=== PATIENT | female | born 1990 | race Caucasian/White ===

== ENCOUNTER 2020-01-24 10:52 | Emergency (ER) | payer OTHER ==
[~2020-01-24] VITALS: Ht 154.9 cm; Wt 67.0 kg
[2020-01-24] MEDS ORDERED: LISI10TA4 PO (10:58)
[2020-01-24 11:49] LABS: BASO % 0.3 % (0.0-1.0); EOS % 0.6 % (0.0-3.0); HEMATOCRIT 42.3 % (36.0-47.0); HEMOGLOBIN 13.2 g/dl (12.0-15.5); LYMPH # 1.8 10^3/uL (1.5-5.0); LYMPH % 26.9 % (24.0-44.0); MEAN CORPUSCULAR HEMOGLOBIN 26.5 pg (27.0-33.0); MEAN CORPUSCULAR HGB CONC 31.2 g/dl (32.0-36.5); MEAN CORPUSCULAR VOLUME 84.8 fl (80.0-96.0); MONO # 0.3 10^3/uL (0.0-0.8); MONO % 4.9 % (0.0-5.0); NEUTROPHILS # 4.5 10^3/uL (1.5-8.5); PLATELET COUNT, AUTOMATED 434 10^3/uL (150-450); RED BLOOD COUNT 4.99 10^6/uL (4.00-5.40); WHITE BLOOD COUNT 6.7 10^3/uL (4.0-10.0)
[2020-01-24 12:05] LABS: ALBUMIN 3.8 GM/DL (3.2-5.2); BILIRUBIN,DIRECT 0.1 MG/DL (0.0-0.2); BILIRUBIN,TOTAL 0.3 MG/DL (0.2-1.0); TOTAL PROTEIN 8.6 GM/DL (6.4-8.2)
[2020-01-24 12:48] VITALS: BP 129/79
== END 2020-01-24 12:49 | disposition home or self-care (01) ==
LOC: M ED 10:52
DX: R10.9 Unspecified abdominal pain (principal); I10 Essential (primary) hypertension

== ENCOUNTER → 2021-01-11 | Outpatient (CLI) | payer OTHER ==
[~2021-01-11] MED LIST: LISI10TA22 PO
--- NOTE | 2021-01-11 17:08 | REP ---
INDICATION: PREG 25+ WKS GROWTH PRECLAPSIA. COMPARISON: By report a full anatomical screen was performed at an outside institution. All interested parties should review that report. The report was generated and November 30, 2020 and I do not have the prior exam to review. TECHNIQUE: Transabdominal FINDINGS: Multiple ultrasonographic images of the gravid uterus shows a single living intrauterine gestation in the cephalic presentation. Doppler interrogation of the heart shows a heart rate of 139 beats per minute. The placenta is anterior not low lying. The cervix measures 4.7 cm length and is closed. The subjective amniotic fluid volume is increased. The calculated amniotic fluid index is 26.9 within expected range 9.7 to 22.3. BPD: 7.2 cm 28 weeks 6 days HC: 25.2 cm 27 weeks 3 days AC: 23.9 cm 28 weeks 1 day FL: 5 cm 26 weeks 6 days The estimated weight is 1115 g which is at the 71st percentile for a 26 week 1 day gestational age. That is based on the patient's LMP rather than today's biometry. Doppler interrogation of the umbilical artery shows an A\B ratio of 2.61. This is within the normal range. Evaluation of the kidneys show bilateral pelviectasis 4.5 mm on the right and 6.7 mm on the left. IMPRESSION: Single living intrauterine gestation as described above an estimated gestational age of 28 weeks 0 days via composite criteria and an estimated date of delivery of 04/05/2021 by today's exam. There is bilateral pelviectasis as described above. This needs clinical correlation and close follow-up. <Electronically signed by Andrea Cohen > 01/11/21 [id number]
== END ==
LOC: M RAD 15:55
PROVIDERS: ATTEND Obstetrics & Gynecology
DX: O14.93 Unspecified pre-eclampsia, third trimester (principal); Z3A.28 28 weeks gestation of pregnancy

== ENCOUNTER → 2021-02-21 | Outpatient (CLI) | payer OTHER ==
[2021-02-21 11:28] LABS: CREATININE,RANDOM URINE < 13.0 MG/DL; TOTAL PROTEIN,RANDOM URINE < 5.0 MG/DL (0.0-12.0)
== END ==
LOC: M LAB 10:25
PROVIDERS: ATTEND Obstetrics & Gynecology
DX: Z36.89 Encounter for other specified antenatal screening (principal)

== ENCOUNTER 2021-03-10 12:13 | Inpatient (IN) | payer OTHER ==
[~2021-03-10] VITALS: Ht 154.9 cm; Wt 94.5 kg
[2021-03-10] VITALS (19 sets, daily range): BP systolic 127–166; BP diastolic 74–117
[2021-03-10] MEDS ORDERED: LABE100T5 PO (12:55)
[2021-03-10] MEDS ORDERED: PRENTAB9 PO (12:55)
[2021-03-10] MEDS ORDERED: ASPI81CH33 PO (12:55)
[2021-03-10] MEDS ORDERED: PANT20TA6 PO (12:55)
[2021-03-10] MEDS ORDERED: HOME MED LIST COMPLETE! XX SCH (13:00)
[2021-03-10] MEDS ORDERED: LABETALOL 100MG/20ML VIAL IV ONE (13:15)
[2021-03-10 13:23] LABS: ALT/SGPT 19 U/L (12-78); BILIRUBIN,TOTAL 0.2 MG/DL (0.2-1.0); CREATININE FOR GFR 0.49 MG/DL (0.55-1.30); GLOMERULAR FILTRATION RATE > 60.0 (>60); LDH LACTATE DEHYDROGENASE 174 U/L (84-246); URIC ACID 2.7 MG/DL (2.6-6.0)
[2021-03-10] MEDS ORDERED: NIFEdipine 10 MG CAP PO STA (13:26)
[2021-03-10] MEDS ORDERED: LABETALOL 100MG/20ML VIAL IV SCH (13:30)
[2021-03-10] MEDS ORDERED: MAG Sulf (L&D) 4 GM/100 ML 4 GM in IV 1 EA IV ONE (13:30)
[2021-03-10 13:41] LABS: APPEARANCE, URINE CLEAR (CLEAR); BACTERIA, URINE AUTO NEGATIVE (NEGATIVE); BILIRUBIN, URINE AUTO NEGATIVE (NEGATIVE); BLOOD, URINE BLOOD NEGATIVE (NEGATIVE); COLOR, URINE COLORLESS (YELLOW); GLUCOSE, URINE (UA) AUTO NEGATIVE (NEGATIVE); KETONE, URINE AUTO NEGATIVE (NEGATIVE); LEUKOCYTE ESTERASE, URINE AUTO NEGATIVE (NEGATIVE); NITRITE, URINE AUTO NEGATIVE (NEGATIVE); PROTEIN, URINE AUTO NEGATIVE (NEGATIVE); RBC, URINE AUTO 0 /HPF (0-3); SPECIFIC GRAVITY URINE AUTO 1.003 (1.002-1.035); SQUAMOUS EPITHELIAL CELL UR AU 0 /HPF (0-6); UROBILINOGEN, URINE AUTO 0.2 mg/dL (0.0-2.0); WBC, URINE AUTO 0 /HPF (0-3)
--- NOTE | 2021-03-10 13:41 | IPNPDOC ---
Text Note Date of Service The patient was seen on 03/10/21. NOTE 31yo presents to labor and delivery from clinic for severe range blood pressures with history of 27wk for pre eclampsia and HELP. Denies headaches or vision changes. BP 172/100 161/102 157/100 RNST FHR 120, mod variability, +accel, -decel, no contractions noted. Lungs CTA RRR clonus +2 noted on exam 2+ bilateral edema Pre eclamptic labs and saline lock ordered Dr. Jacobo called and advised of patient status and history. Per Dr. Jacobo Pt orders for admission placed, Iv labetalol doubling protocol and magnesium sulfate ordered. Pt was advised of concern for need for delivery today, and that Dr. Jacobo will be coming to discuss plan of care with her. Questions asked and answered about expectations for an infant born at 34 wks compared to 27wk discussed. Per Dr. Jacobo's instructions an additional order for 10mg po nifedipine was placed while nursing staff attempted to start IV access. VS,Raobone, I+O VS, Raobone, I+O Laboratory Tests 03/10/21 12:49 Vital Signs Date Time Temp Pulse Resp B/P (MAP) Pulse Ox O2 Delivery O2 Flow Rate FiO2 03/10/21 12:35 99.2 95 20 162/101 (121) EHRB CALDERON CNM Mar 10, 2021 13:41
[2021-03-10] MEDS: LR 1,000 ML IV SCH (13:52)
[2021-03-10] MEDS: MAG Sulf (OBGYN) 20GM/500ML 20,000 MG in IV 1 EA IV SCH ×2 (13:54→22:21)
[2021-03-10 13:58] LABS: CREATININE,RANDOM URINE < 13.0 MG/DL; TOTAL PROTEIN,RANDOM URINE 7.9 MG/DL (0.0-12.0)
--- NOTE | 2021-03-10 14:23 | HPEPDOC ---
Obstetrical History & Physical General Date of Admission Mar 10, 2021 at 13:25 History of Present Illness 31 yo @ 34W 3D BY 8wk us admitted for pre e with severe features with severe range BP needing PO procardia and clonus. She had history of pre e with severe feature in prior requiring C/S delivery at 27 weeks. patient unsure if she had a classical c/s. she denies any headaches, vision changes or RUQ pain. she reports that she has swollen up in the last few days. and notes that she has not taken her noon labetalol dose. she has other concerns. Care Care: Good Care Dating Final EDC: Apr 18, 2021 Final EDC by: 1st trimester (US) Estimated Date of Confinement: Apr 18, 2021 EGA at Admission: 34 (34w3d) Antepartum Course Diagnos(e)s 1. HX of HELLP syndrome requiring delivery via C/S at 27weeks. unsure if classical... will plan for repeat C/S today 2. RH neg- had rhogam at 28 weeks 3. CHTN on meds 4. 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 Past Medical History Medical History CHTN Surgical History: Denies/None Family History Significant Family History: No pertinent family hx Social History Marital Status: Family situation: Spouse/partner home Psychosocial History: No pertinent psych hx * Smoker: non-smoker Alcohol: Denies Drugs: denies Abuse Violence Screening Have you been hit/kicked/slapp: No Have you been sexually assault: No Imunizations Tdap status: current Influenza Status: current Allergies Coded Allergies: codeine (Verified Adverse Reaction, Mild, GI UPSET, 03/10/21) Medications Scheduled Aspirin (Aspirin) 81 Mg Tab.chew, 2 TAB PO DAILY for pain Labetalol HCl (Labetalol HCl) 100 Mg Tablet, 100 MG PO QID Pantoprazole Sodium (Pantoprazole Sodium) 20 Mg Tablet.dr, 20 MG PO DAILY No.137/Iron/Folic Acd ( Vitamin Tablet) 1 Each Tablet, 1 TAB PO DAILY Physical Examination Physical Examination GENERAL: Alert and oriented times three. BREAST: . ABDOMEN: Gravid and non-tender to touch. HEART RATE: Regular rate and rhythm. LUNGS: Clear to auscultation (CTA). EXTREMITIES: PEDAL edema, UNABLE TO GET PATELLA REFLEX DUE TO EDEMA , + 1 clonus. Vital Signs/I&O Vital Signs Date Time Temp Pulse Resp B/P (MAP) Pulse Ox O2 Delivery O2 Flow Rate FiO2 03/10/21 13:35 162/101 03/10/21 12:35 99.2 95 20 Laboratory Data 24H LABS Laboratory Tests 2 03/10/21 12:49: Glomerular Filtration Rate > 60.0, Uric Acid 2.7, Total Bilirubin 0.2, Aspartate Amino Transf (AST/SGOT) 17, Alanine Aminotransferase (ALT/SGPT) 19, Lactate Dehydrogenase 174 03/10/21 13:16: Urine Color COLORLESS, Urine Appearance CLEAR, Urine pH 8.0, Urine Specific [place] 1.003, Urine Protein NEGATIVE, Urine Glucose (Auto)(UA) NEGATIVE, Urine Ketones (Auto) NEGATIVE, Urine Blood NEGATIVE, Urine Nitrite NEGATIVE, Urine Bilirubin NEGATIVE, Urine Urobilinogen 0.2, Urine Leukocyte Esterase (Auto) NEGATIVE, Urine WBC (Auto) 0, Urine RBC (Auto) 0, Urine Hyaline Casts (Auto) 0, Urine Bacteria (Auto) NEGATIVE, Urine Squamous Epithelial Cells 0, Urine Sperm (Auto) 03/10/21 13:17: 03/10/21 13:32: Serology Scanned Report Hepatitis B Testing CBC/BMP Laboratory Tests 03/10/21 12:49 Pertinent Laboratoy Data Blood Type: A+ RBC Antibody Screen: Negative HIV: Negative Hepatitis B: Negative Rapid Plasma Reagin: Nonreactive Rubella: Immune Varicella: Immune Chlamydia/Gonorrhea: Negative Group B Streptococcus: Unknown Quad Screen Test: Negative Cystic Fibrosis: Negative Anatomy Ultrasound Placenta Location: Anterior Normal Anatomy: Yes Assessment Heart Rate (FHR): 140 Variability: Moderate Accelerations: Positive Tocometer Contractions: No Multi-drug resistant Organism: No history of MDRO Assessment/Plan Assessment Assessment: 31 yo @ 34W 3D BY 8wk us admitted for pre e with severe fe atures with severe range BP needing PO procardia and clonus. She had history of pre e with severe feature in prior requiring C/S delivery at 27 weeks. patient unsure if she had a classical c/s.. Category I FHRT. now started on magnesium. APC: 1. HX of HELLP syndrome requiring delivery via C/S at 27weeks. unsure if classical... will plan for repeat C/S today 2. RH neg- had rhogam at 28 weeks 3. CHTN on meds 4. Satisfied Parity- wants tubal ligation GBS Unknown EFW 3000G Placenta anterior , no previa Plan Plan: - Admit to L&D. - Consent signed and given to RN - CBC with type and screen, pre e labs - EFM - Anesthesia to see - tool and die maker TO THE OR -2g ANCEF, BICITRA -On magnesium therapy to be continued 24hrs -Will have bleeding meds available BELLO BOWMAN MD Mar 10, 2021 14:23
[2021-03-10 14:49] LABS: HEMATOCRIT 35.1 % (36.0-47.0); HEMOGLOBIN 11.1 g/dl (12.0-15.5); MEAN CORPUSCULAR HEMOGLOBIN 25.8 pg (27.0-33.0); MEAN CORPUSCULAR HGB CONC 31.6 g/dl (32.0-36.5); MEAN CORPUSCULAR VOLUME 81.6 fl (80.0-96.0); PLATELET COUNT, AUTOMATED 501 10^3/uL (150-450); WHITE BLOOD COUNT 12.7 10^3/uL (4.0-10.0)
[2021-03-10] MEDS ORDERED: TRANEXAMIC ACID INJection 1,000 MG in NS 100 ML IV PRN (15:25)
[2021-03-10] MEDS ORDERED: ACETAMINOPHEN 650 MG SUPP PR SCH (15:25)
[2021-03-10] MEDS ORDERED: LIDOCAINE 1% MDV 20ML VIAL INFIL PRN (15:25)
[2021-03-10] MEDS ORDERED: ceFAZolin SOD 2 GM in IV 1 EA IV ONE (15:25)
[2021-03-10] MEDS ORDERED: CARBOPROST TROMETHAMINE 250 MCG/ML AMP IM PRN (15:25)
[2021-03-10] MEDS ORDERED: BICITRA 30ML SOLN UDC PO ONE (15:25)
[2021-03-10] MEDS ORDERED: OXYTOCIN INJ 10 UNITS/ML VIAL (J2590) IM PRN (15:25)
[2021-03-10] MEDS ORDERED: OXYTOCIN INJ 10 UNITS/ML VIAL (J2590) IV PRN (15:25)
[2021-03-10] MEDS ORDERED: MORPHINE PRES-FREE INJ 10 MG/10 ML VIAL (J2274) As Ordered ONE (16:31)
[2021-03-10] MEDS ORDERED: ONDANSETRON 4MG/2ML VIAL IV PRN ×3 (16:50→19:50)
[2021-03-10] MEDS ORDERED: NALOXONE INJ 0.4MG/1ML VIAL (J2310 PER 1MG) IV PRN ×2 (16:50)
[2021-03-10] MEDS ORDERED: NALBUPHINE HCL 10 MG/ML AMP (J2300) IV PRN (16:50)
[2021-03-10] MEDS ORDERED: METOCLOPRAMIDE INJ 10MG/2ML VIAL (J2765 PER 1) IV PRN ×2 (16:50→19:50)
[2021-03-10] MEDS ORDERED: diphenhydrAMINE 50MG/ML VIAL (J1200) IV PRN ×2 (16:50→19:50)
[2021-03-10] MEDS ORDERED: PHENYLephrine 500MCG 5ML (100MCG/ML) SYRINGE As Ordered ONE (16:58)
[2021-03-10] MEDS ORDERED: OXYTOCIN 30 UNITS IN 0.9% NaCl 500ML IV BAG (J2590) As Ordered ONE ×2 (16:58→18:20)
[2021-03-10] MEDS ORDERED: ePHEDrine SULFATE 25 MG/5 ML(5MG/ML) SYRINGE As Ordered ONE (16:58)
[2021-03-10] MEDS ORDERED: ONDANSETRON 4MG/2ML VIAL As Ordered ONE ×2 (17:13→18:29)
[2021-03-10] MEDS ORDERED: KETOROLAC 60MG 2ML VIAL As Ordered ONE (17:13)
[2021-03-10] MEDS ORDERED: TRANEXAMIC ACID 100 MG/ML 10ML VIAL As Ordered ONE ×2 (17:16→17:17)
[2021-03-10 17:33] LABS: CORD GAS ABE V -0.4; CORD GAS HCO3 V 24.6 MEQ/L; CORD GAS O2 SAT V 45.8 %; CORD GAS PCO2 V 41.7 mmHg; CORD GAS PH V 7.389 UNITS; CORD GAS PO2 V 18.5 mmHg; CORD GAS SBC V 22.9 MEQ/L; CORD GAS TCO2 V 25.9 MEQ/L
[2021-03-10 17:35] LABS: CORD GAS ABE A -4.6; CORD GAS HCO3 A 22.5 MEQ/L; CORD GAS O2 SAT A 62.9 %; CORD GAS PH A 7.28 UNITS; CORD GAS PO2 A 26.8 mmHg; CORD GAS SBC A 19.9 MEQ/L
[2021-03-10] MEDS ORDERED: ACETAMINOPHEN 500 MG TAB PO PRN (18:05)
[2021-03-10] MEDS ORDERED: RHOGAM 300 MCG (1500 IU) INJ (J2790) IM SCH (18:05)
[2021-03-10] MEDS ORDERED: MOM 30ML SUSPENSION UDC PO PRN (18:05)
[2021-03-10] MEDS ORDERED: oxyCODONE 5MG TAB PO PRN ×3 (18:05→19:50)
--- NOTE | 2021-03-10 18:22 | ROOPDOC ---
[facility] Report Of Operation Report of Operation DATE OF PROCEDURE: 03/10/21 PREPROCEDURE DIAGNOSES: satisfied parity, preeclampsia with severe features, 34 weeks 3 days gestation, Rh negative, history of hellp syndrome and placenta abrution with delivery at 27 weeks, classical c/s? POSTPROCEDURE DIAGNOSES: same as above PROCEDURE PERFORMED: repeat delivery, dilateral tubal ligation SURGEON: Bello Bowman MD STATION CAPTAIN: Katty Christianson CNM ANESTHESIA: SPINAL ESTIMATED BLOOD LOSS: Approximately 700 mL. COMPLICATIONS: none REMARKS: 2 g ancef, bicitra, 1000mg ME tylenol placed, magnesium running during the case FINDINGS: phannenstiel incision, very large capillary vs. [place] sinus seen on the serosa. very thin anterior lower uterine segment. Low transverse uterine incision. bloody amniotic fluid. delivery of male with spontaneous movements and cry. hysterotomy closure single running/locking layer with 0 monocryl. bilateral tubal ligation done with parkland method. normal bilateral ovaries. peritoneum closed. fascia closed with 0-pds. subc closed in interrupted. skin closed with 4-0 vicryl on a mookie needle. SPECIMENS REMOVED: placenta and bilateral fallopian tubes DESCRIPTION OF PROCEDURE: The patient was taken to the operating room where epidural anesthesia was found to be adequate. She was then prepped and draped in the normal sterile fashion in the dorsal supine position with a leftward tilt. A Pfannenstiel skin incision was then made with the scalpel and carried through to the underlying layer of fascia. The fascia was incised in the midline and the incision extended laterally with the curved Davalos scissors. The superior aspect of the fascial incision was then grasped with the Alyse clamps, elevated, and the underlying rectus muscles dissected off bluntly with the scalpel used in the midline. Attention was then turned to the inferior aspect of this incision which, in a similar fashion, was grasped, tented up with Kocker clamps, and the rectus muscles dissected off bluntly. The rectus muscles were then in the midline, and the peritoneum identified and entered bluntly. The peritoneal opening was additionally extended superiorly and laterally by manual traction with good visualization of the bladder. the Mobius retractor was then inserted and a bladder flap was created. The lower uterine segment incised in a transverse fashion with the scalpel. The uterine incision was then bluntly extended caudally and cephalad with manual traction and the infants head delivered atraumatically followed by the body. The cord was clamped and cut and infant handed to awaiting pediatricians. Cord segment obtained and cord blood sent for gases. The placenta was then removed with gentle traction. The uterus was exteriorized and cleared of all clots and debris. The uterine incision was closed with 0- Monocryl in a running locked fashion. uterus with very large capillary vs. [place]is sinus seen on the serosa, ovaries were normal and tubes were noted and tubal ligation was performed with the parkland method. hemostasis was obtained with bovie cautery. the uterus was returned into the abdomen, gutter were again cleaned and hemostasis again noted at all the surgical sites then the retractor was removed. the peritoneum was closed with 2-0 vicryl. The fascia was closed with 0-PDS in a running fashion. The suprafascial area was irrigated and the skin was closed with 3-0 monocryl on a mookie needle. optiforam dressing was applied. The patient tolerated the procedure well. Sponge, lap and needle counts were correct times two. The patient was taken to the recovery room in stable condition. BELLO BOWMAN MD Mar 10, 2021 18:22
[2021-03-10] MEDS ORDERED: OXYTOCIN DRIP 30 UNITS in IV 1 EA IV SCH (18:30)
[2021-03-10] MEDS ORDERED: fentaNYL 100 MCG/2 ML INJECTION (J3010) As Ordered ONE (18:44)
[2021-03-10] MEDS ORDERED: HYDROMORPHONE HCL 0.5 MG/ 0.5 ML SYRINGE (J1170 PER 1) IV PRN ×2 (18:45→19:50)
[2021-03-10] MEDS: fentaNYL 100 MCG/2 ML INJECTION (J3010) IV PRN ×2 (18:47→19:44)
[2021-03-10] MEDS ORDERED: LOPERAMIDE 2 MG CAPLET PO ONE (19:40)
[2021-03-10] MEDS ORDERED: METOCLOPRAMIDE INJ 10MG/2ML VIAL (J2765 PER 1) As Ordered ONE (19:47)
[2021-03-10] MEDS ORDERED: fentaNYL 100 MCG/2 ML INJECTION (J3010) IV PRN (19:50)
[2021-03-10] MEDS: DOCUSATE SODIUM 100MG CAPSULE PO SCH (21:00)
[2021-03-10] MEDS: KETOROLAC 30 MG/ML 1ML VIAL IV SCH (23:14)
[2021-03-11] VITALS (21 sets, daily range): BP systolic 123–146; BP diastolic 68–91
[2021-03-11 04:23] LABS: HEMATOCRIT 25.9 % (36.0-47.0); MEAN CORPUSCULAR HEMOGLOBIN 25.8 pg (27.0-33.0); MEAN CORPUSCULAR VOLUME 80.4 fl (80.0-96.0); RED BLOOD COUNT 3.22 10^6/uL (4.00-5.40); WHITE BLOOD COUNT 18.8 10^3/uL (4.0-10.0)
[2021-03-11 04:25] LABS: HEMOGLOBIN 8.3 g/dl (12.0-15.5); PLATELET COUNT, AUTOMATED 348 10^3/uL (150-450)
[2021-03-11] MEDS: KETOROLAC 30 MG/ML 1ML VIAL IV SCH ×2 (04:59→11:12)
[2021-03-11] MEDS: MAG Sulf (OBGYN) 20GM/500ML 20,000 MG in IV 1 EA IV SCH (08:07)
[2021-03-11 08:22] LABS: HEMATOCRIT 24.8 % (36.0-47.0); MEAN CORPUSCULAR HEMOGLOBIN 25.7 pg (27.0-33.0); MEAN CORPUSCULAR HGB CONC 32.3 g/dl (32.0-36.5); MEAN CORPUSCULAR VOLUME 79.7 fl (80.0-96.0); PLATELET COUNT, AUTOMATED 353 10^3/uL (150-450); RED BLOOD COUNT 3.11 10^6/uL (4.00-5.40)
[2021-03-11] MEDS: PRENATAL VITAMINS CHEWABLE TABLET PO SCH (09:23)
[2021-03-11] MEDS: DOCUSATE SODIUM 100MG CAPSULE PO SCH ×2 (09:23→20:59)
[2021-03-11] MEDS: FERROUS SULFATE 325MG TAB PO SCH ×2 (10:19→20:59)
[2021-03-11] MEDS: LABETALOL 100MG TAB PO SCH ×2 (11:49→20:59)
--- NOTE | 2021-03-11 11:50 | IPNPDOC ---
Progress Note Date of Service: Mar 11, 2021 Day#: 1 Progress Note Late note due to census. Patient seen at 0915 this am. Ms. Simon is a 31yo post operative day 1 s/p Repeat unscheduled for pre-eclampsia with severe features at 34+3wks gestation. S: Ms. Simon states she is doing well. Reports pain well controlled. Currently on bedrest with SCDs. Tolerating a regular diet, reports passing gas. No breast or leg pain. Has not started pumping yet for NICU baby. Lochia is diminishing. Reports moods are stable. Denies dizziness, lightheadedness. Denies headaches, vision changes, nausea, vomiting, or RUQ pain. O: VS: 0346: BP 140/81, P93 0446: BP 132/79, P100 0546: BP 128/76, P92 0646: BP 132/75, P94 0716: BP 131/78, P93 0810: BP 140/85, P97 0910: BP 138/79, P100 General: Alert. Well-appearing, in no acute distress. PSYCH: Well groomed. Appropriate affect, normal mood. Conversed easily. Neuro: Oriented to time, place, and person. patellar Deep tendon reflexes 1. Negative clonus. RRESP: Lungs clear to auscultation bilaterally without wheezes, rales or rhonchi. Unlabored breathing. CV: Normal RRR, no murmur, c/w normal . Minimal non-pitting edema to BLE with SCD in place. Negative calf tenderness. Breast: Soft, filling. No erythema or tenderness. Intact nipples. ABD: Soft, non-tender. BS normal x4 quad. Fundus: Firm U-1, Fundus non-tender. Lochia: small SKIN: Dry, intact. abdomen with surgical scar- Opifoam dressing intact without drainage. U Labs: Item Value Date Time White Blood Count 15.0 10^3/uL H 03/11/21651 Red Blood Count 3.11 10^6/uL L 03/11/21651 Hemoglobin 8.0 g/dl L 03/11/21651 Hematocrit 24.8 % L 03/11/21651 Mean Corpuscular Volume 79.7 fl L 12/4/21 0652 Mean Corpuscular Hemoglobin 25.7 pg L 03/11/21 0652 Mean Corpuscular Hemoglobin Concent 32.3 g/dl 03/11/21 0652 Red Cell Distribution Width 14.2 % 03/11/21 0652 Platelet Count 353 10^3/uL 03/11/21 0652 Creatinine 0.49 MG/DL L 03/10/21 1249 Glomerular Filtration Rate > 60.0 03/10/21 1249 Uric Acid 2.7 MG/DL 03/10/21 1249 Aspartate Amino Transf (AST/SGOT) 17 U/L 03/10/21 1249 Alanine Aminotransferase (ALT/SGPT) 19 U/L 03/10/21 1249 Lactate Dehydrogenase 174 U/L 03/10/21 1249 A/P 31yo day 1 s/p Repeat at 34+3 wks gestation A negative: Rh negative, no rhogam indicated GBS was unknown RI/ Encouraged to start pumping now for NICU infant. Severe Pre-E: normotensive to mild range BP. Last antihypertensive medications were given prior to delivery yesterday (nifedipine and labetalol IV). Pt previously on 100mg QID during with medications prior to as well. Patient did have previous delivery at 27wks for pre-e with HELLP. LFT normal on admission. Pt denies any s/s of pre-e. Excellent urine output with over 300ml/hr. Consulted Dr. Crump. Plan to start 100mg BID now. Continue mag sulfate infusion until 24hr post delivery. Anemia: started iron BID with colace BID. BTL completed with surgery for control. Continue care and comfort measures, tylenol/motrin for pain. PRN narcotics VS, I&O, 24H, Fishbone Vital Signs/I&O Vital Signs Date Time Temp Pulse Resp B/P (MAP) Pulse Ox O2 Delivery O2 Flow Rate FiO2 03/11/21 10:10 101 18 140/84 (102) 03/11/21 10:10 Room Air 03/11/21 07:16 97.8 03/10/21 20:09 97 I&O- Last 24 Hours up to 6 AM 03/11/21 06:00 Intake Total 5463.50 ml Output Total 3410 ml Balance 2053.50 ml Laboratory Data 24H LABS Laboratory Tests 2 03/10/21 12:45: Nucleated Red Blood Cells % (auto) 0.2H 03/10/21 12:49: Glomerular Filtration Rate > 60.0, Uric Acid 2.7, Total Bilirubin 0.2, Aspartate Amino Transf (AST/SGOT) 17, Alanine Aminotransferase (ALT/SGPT) 19, Lactate Dehydrogenase 174 03/10/21 13:16: Urine Color COLORLESS, Urine Appearance CLEAR, Urine pH 8.0, Urine Specific [place] 1.003, Urine Protein NEGATIVE, Urine Glucose (Auto)(UA) NEGATIVE, Urine Ketones (Auto) NEGATIVE, Urine Blood NEGATIVE, Urine Nitrite NEGATIVE, Urine Bilirubin NEGATIVE, Urine Urobilinogen 0.2, Urine Leukocyte Esterase (Auto) NEGATIVE, Urine WBC (Auto) 0, Urine RBC (Auto) 0, Urine Hyaline Casts (Auto) 0, Urine Bacteria (Auto) NEGATIVE, Urine Squamous Epithelial Cells 0, Urine Sperm (Auto) 03/10/21 13:17: Urine Random Creatinine < 13.0, Urine Random Total Protein 7.9 03/10/21 13:32: Serology Scanned Report Hepatitis B Testing 03/10/21 17:20: Cord Arterial Blood pH 7.280, Cord Arterial Blood PCO2 49.0, Cord Arterial Blood PO2 26.8, Cord Arterial Blood HCO3 22.5, Cord Arterial Blood Total CO2 24.0, Cord Arterial Blood Base Excess -4.6, Cord Arterial Base Excess (Standard 19.9, Cord Arterial Bld Oxygen Saturation 62.9, Cord Venous Blood pH 7.389, Cord Venous Blood PCO2 41.7, Cord Venous Blood PO2 18.5, Cord Venous Blood HCO3 24.6, Cord Venous Blood Total CO2 25.9, Cord Venous Base Excess (Actual) -0.4, Cord Venous Base Excess (Standard) 22.9, Cord Venous Blood Oxygen Saturation 45.8 03/10/21 18:46: Fibrinogen 505H 03/11/21 04:14: Nucleated Red Blood Cells % (auto) 0.0 03/11/21 06:52: Nucleated Red Blood Cells % (auto) 0.0 CBC/BMP Laboratory Tests 03/10/21 12:45 03/10/21 12:49 03/11/21 04:14 03/11/21 06:52 SHAVON EWING CNM Mar 11, 2021 11:50
[2021-03-11] MEDS: SIMETHICONE 80MG CHEW TAB PO PRN (16:32)
[2021-03-11] MEDS: oxyCODONE 5MG TAB PO PRN (16:34)
[2021-03-11] MEDS: LR 1,000 ML IV SCH (16:43)
[2021-03-11] MEDS ORDERED: SLF 3 ML SYR IV PRN (17:20)
[2021-03-11] MEDS: IBUPROFEN 800 MG TAB PO SCH (18:43)
[2021-03-11] MEDS: SLF 3 ML SYR IV SCH (21:01)
[2021-03-12] VITALS (7 sets, daily range): BP systolic 126–185; BP diastolic 72–116
--- NOTE | 2021-03-12 03:13 | IPNPDOC ---
Progress Note Date of Service: Mar 12, 2021 Day#: 2 Progress Note Ms. Simon is a 31yo post operative day 2 s/p Repeat unscheduled for pre-eclampsia with severe features at 34+3wks gestation. S: Ms. Simon states she is doing well. Reports pain well controlled. Ambula ting well. Tolerating a regular diet, reports passing gas. No breast or leg pain. Has started pumping for NICU baby. Lochia is diminishing. Reports moods are stable. Denies dizziness, lightheadedness. Denies headaches, vision changes, nausea, vomiting, or RUQ pain. O: VS: 1800: BP 140/81 2200: BP 131/76 General: Alert. Well-appearing, in no acute distress. PSYCH: Well groomed. Appropriate affect, normal mood. Conversed easily. Neuro: Oriented to time, place, and person. RESP: Lungs clear to auscultation bilaterally without wheezes, rales or rhonchi. Unlabored breathing. CV: Normal RRR, no murmur, c/w normal . Minimal non-pitting edema to BLE. Negative calf tenderness. ABD: Soft, non-tender. BS normal x4 quad. Fundus: Firm U-1, Fundus non-tender. Lochia: small SKIN: Dry, intact. abdomen with surgical scar- Opifoam dressing intact without drainage. A/P 31yo day 2 s/p Repeat at 34+3 wks gestation A negative: infant Rh negative, no rhogam indicated GBS was unknown RI/ Continue to pump for NICU . Anemia: started iron BID with colace BID. BTL completed with surgery for control. Severe Pre-E: normotensive to mild range BP. Was started on labetalol 100mg BID yesterday. Has remained normotensive to mild range BP. Pt previously on Lisinopril prior to . LFT normal on admission. H/H yesterday anemic with CBC due this am. Pt denies any s/s of pre-e. Continued excellent urine output. Plan to f/u in OB clinic in 2 days for BP check. Plan discharge home this evening if BP remains stable. Continue care and comfort measures, tylenol/motrin for pain. PRN narcotics VS, I&O, 24H, Fishbone Vital Signs/I&O Vital Signs Date Time Temp Pulse Resp B/P (MAP) Pulse Ox O2 Delivery O2 Flow Rate FiO2 03/11/21 22:00 98.9 88 16 131/76 (94) 98 Room Air I&O- Last 24 Hours up to 6 AM 03/12/21 05:59 Intake Total 4408 ml Output Total 5280 ml Balance -872 ml Laboratory Data 24H LABS Laboratory Tests 2 03/11/21 04:14: Nucleated Red Blood Cells % (auto) 0.0 03/11/21 06:52: Nucleated Red Blood Cells % (auto) 0.0 CBC/BMP Laboratory Tests 03/11/21 04:14 03/11/21 06:52 SHAVON EWING CNM Mar 12, 2021 03:13
[2021-03-12] MEDS: IBUPROFEN 800 MG TAB PO SCH ×2 (03:17→11:38)
--- NOTE | 2021-03-12 03:19 | DS.PDOC ---
Discharge Summary General Date of Admission Mar 10, 2021 at 13:25 Date of Discharge Mar 12, 2021 Discharge Summary Date of Admission: 03/10/21 Admission Diagnosis: Pre-eclampsia with severe features Delivery Date: 03/10/21 Discharge Diagnosis: -Unscheduled repeat low transverse low -Satisfied parity -Chronic hypertension with superimposed pre-eclampsia with severe features. -Pre-Term delivery Procedures: Section Bilateral Tubal Ligation Condition on Discharge: Stable Discharged to: Home Hospital Course: Ms. Simon is a 31 year old G 2 now P 2 who delivered a viable infant male at 34+3 weeks gestation via unscheduled Section after being found to have pre-eclampsia with severe features. Patient has had an uncomplicated course. She has remained afebrile and normotensive with diminishing lochia throughout her stay. She is ambulating well, tolerating a regular diet, urinating without difficulty, reports normal bowel activities and has no breast or leg pain. Ms. Simon's blood pressures have remained mild range elevations to normotensive, controlled with oral labetalol. She denies headache, vision changes, RUQ pain, or nausea/vomiting. She is stable and ready for discharge. Day of discharge physical exam documented in progress note. in NICU. Bilateral tubal ligation was completed for control. To follow up in the [facility] clinic in 2 days for blood pressure check in the clinic. Discharge management time Spent: <30 minutes I saw and evaluated the patient, and completed the documentation personally. -MAJ Kayla Ewing CNM Vital Signs/I&Os Vital Signs Date Time Temp Pulse Resp B/P (MAP) Pulse Ox O2 Delivery O2 Flow Rate FiO2 03/11/21 22:00 98.9 88 16 131/76 (94) 98 Room Air I&O- Last 24 Hours up to 6 AM 03/12/21 05:59 Intake Total 4408 ml Output Total 5280 ml Balance -872 ml Laboratory Data Labs 24H Laboratory Tests 2 03/11/21 04:14: Nucleated Red Blood Cells % (auto) 0.0 03/11/21 06:52: Nucleated Red Blood Cells % (auto) 0.0 CBC/BMP Laboratory Tests 03/11/21 04:14 03/11/21 06:52 Discharge Medications Scheduled Aspirin (Aspirin) 81 Mg Tab.chew, 2 TAB PO DAILY for pain, (Reported) Labetalol HCl (Labetalol HCl) 100 Mg Tablet, 100 MG PO QID, (Reported) Pantoprazole Sodium (Pantoprazole Sodium) 20 Mg Tablet.dr, 20 MG PO DAILY, (Reported) No.137/Iron/Folic Acd ( Vitamin Tablet) 1 Each Tablet, 1 TAB PO DAILY, (Reported) Allergies Coded Allergies: codeine (Verified Adverse Reaction, Mild, GI UPSET, 03/10/21) KAYLA EWING CNM Mar 12, 2021 03:19
[2021-03-12] MEDS: SLF 3 ML SYR IV SCH (06:00)
[2021-03-12] MEDS ORDERED: LABETALOL 100MG/20ML VIAL IV ONE (06:55)
--- NOTE | 2021-03-12 07:47 | IPNPDOC ---
Text Note Date of Service The patient was seen on 03/12/21. NOTE Called by nursing staff for severe range BP at 0645. Was last given PO labetalol at 2100 last night. Order for IV 20mg Labetalol. Repeat BP mild hypertensive range. Plan to adjust oral antihypertensives today. May need to stay another day to monitor blood pressure status. Back up physician updated on patient status at change of shift. -A. LTC Kareen/KARRIE VS,Mervin, I+O VS, Fishbone, I+O Vital Signs Date Time Temp Pulse Resp B/P (MAP) Pulse Ox O2 Delivery O2 Flow Rate FiO2 03/12/21 07:31 146/72 (96) 03/12/21 07:10 104 03/12/21 06:00 99.2 18 97 Room Air I&O- Last 24 Hours up to 6 AM 03/12/21 05:59 Intake Total 4408 ml Output Total 5280 ml Balance -872 ml SHAVON EWING CNM Mar 12, 2021 07:46
[2021-03-12] MEDS: DOCUSATE SODIUM 100MG CAPSULE PO SCH (08:30)
[2021-03-12] MEDS: PRENATAL VITAMINS CHEWABLE TABLET PO SCH (08:30)
[2021-03-12] MEDS: FERROUS SULFATE 325MG TAB PO SCH (08:30)
[2021-03-12] MEDS: LABETALOL 100MG TAB PO SCH (08:30)
[2021-03-12 08:49] LABS: HEMATOCRIT 24.4 % (36.0-47.0); HEMOGLOBIN 7.7 g/dl (12.0-15.5); MEAN CORPUSCULAR HEMOGLOBIN 25.8 pg (27.0-33.0); MEAN CORPUSCULAR HGB CONC 31.6 g/dl (32.0-36.5); MEAN CORPUSCULAR VOLUME 81.6 fl (80.0-96.0); PLATELET COUNT, AUTOMATED 348 10^3/uL (150-450); RED BLOOD COUNT 2.99 10^6/uL (4.00-5.40); WHITE BLOOD COUNT 12.4 10^3/uL (4.0-10.0)
[2021-03-12] MEDS ORDERED: NIFEdipine 30 MG XL TAB PO SCH (09:00)
[2021-03-12] MEDS: SIMETHICONE 80MG CHEW TAB PO PRN (11:59)
[2021-03-12] MEDS: oxyCODONE 5MG TAB PO PRN (12:00)
[2021-03-12] MEDS ORDERED: IBUP80TA PO (13:40)
[2021-03-12] MEDS ORDERED: NIFE1TAB52 PO (13:40)
[2021-03-12] MEDS ORDERED: ACET-683 PO (13:40)
== END 2021-03-12 15:01 | disposition home or self-care (01) | DRG 785 ==
LOC: M LDO 12:13 → M LDI 13:25 → M OBS 03-11 18:31
PROVIDERS: ADMIT Obstetrics & Gynecology; ATTEND Registered Nurse
PROC: 0UB70ZZ Excision of Bilateral Fallopian Tubes, Open Approach (ICD-10-PCS; 2021-03-10)
PROC: 10D00Z1 Extraction of Products of Conception, Low, Open Approach (ICD-10-PCS; principal; 2021-03-10 16:00)
DX: O14.14 Severe pre-eclampsia complicating childbirth (principal); Z3A.34 34 weeks gestation of pregnancy; Z37.0 Single live birth; O34.211 Maternal care for low transverse scar from previous cesarean delivery; O10.02 Pre-existing essential hypertension complicating childbirth; Z30.2 Encounter for sterilization